=== PATIENT | female | born 1995 | race American Indian/Alaskan Native ===

== ENCOUNTER 2017-07-23 10:40 | Emergency (ER) | payer SELFPAY ==
[2017-07-23 12:28] VITALS: BP 109/75
== END 2017-07-23 17:10 | disposition left against medical advice (07) ==
LOC: ED 10:40
DX: R22.0 Localized swelling, mass and lump, head (principal); Z53.21 Procedure and treatment not carried out due to patient leaving prior to being seen by health care provider

== ENCOUNTER 2017-07-25 13:48 | Emergency (ER) | payer SELFPAY ==
[2017-07-25] MEDS ORDERED: TYLENOL PO ONE (14:02)
--- NOTE | 2017-07-25 16:53 | Emergency Department Report ---
HPI - General Chief Complaint: Sore Throat Time Seen by Provider: 07/25/17 16:52 - HPI HPI: Patient reports that she is having sore throat and right lower back tooth pain. She said this is been ongoing for a week now. Sore throat and tooth pain is 10 out of 10 and aching. No difficulty swallowing. Patient says she has a dental appointment in 2 days at a dentist in [place] but the pain is unbearable and she cannot take it so she came in. Denies any drooling, swelling of tongue or difficulty controlling secretions. Denies any coughing, nasal congestion. Denies any shortness of breath or chest pain. She denies any fever or chills. She says she took Motrin but it's not helping her pain. Patient is very anxious and crying, inconsolable. ED Past Medical Hx - Past Medical History Previous Medical History?: No - Surgical History Past Surgical History?: Yes - Family History Family history: hypertension - Social History Smoking Status: Unknown if ever smoked Substance Use Type: None - Medications Home Medications: Home Medications Medication Instructions Recorded Confirmed Last Taken Type HYDROcodone/APAP 7.5-325 [Linden 1 each PO Q6HR PRN 3 Days #12 07/25/17 Unknown Rx 7.5-325 mg TAB] tablet Ibuprofen [Motrin] 600 mg PO Q8H PRN 7 Days #21 tablet 07/25/17 Unknown Rx Penicillin V Potassium 500 mg PO Q8H 10 Days #30 tablet 07/25/17 Unknown Rx ED Review of Systems ROS: Stated complaint: SORE THROAT Other details as noted in HPI Comment: All other systems reviewed and negative Constitutional: no symptoms reported Eyes: denies: eye pain, eye discharge, vision change ENT: throat pain, dental pain. denies: ear pain, hearing loss, epistaxis, congestion Respiratory: no symptoms reported Cardiovascular: denies: chest pain, palpitations, dyspnea on exertion, orthopnea , edema, syncope, paroxysmal nocturnal dyspnea Gastrointestinal: denies: abdominal pain, nausea, vomiting, diarrhea, constipation, hematemesis, melena, hematochezia Musculoskeletal: denies: back pain, joint swelling, arthralgia, myalgia Skin: denies: rash Neurological: denies: headache, numbness, paresthesias, confusion, abnormal gait , vertigo Psychiatric: anxiety Physical Exam - Physical Exam Vital Signs: Vital Signs 07/25/17 07/25/17 13:58 14:11 Temperature 99.1 F Pulse Rate 102 H Respiratory 18 18 Rate Blood Pressure 129/88 O2 Sat by Pulse 100 Oximetry General: This is a 22-year-old female that is very anxious and crying inconsolable for severe toothache and sore throat. Physical Exam: Head: Normocephalic atraumatic Ears:BIateral TM pearly gonzalez .Compa EAC with normal exam. No mastoid bone tenderness. Mouth: Moist, no pharyngeal erythema or exudate . No tonsillar erythema or exudate. UVULA midline and oral airways patent. No peritonsillar abscess. Tooth #32 with fracture and positive pulp exposure. Positive dental caries. Mild gingival inflammation. No induration or cellulitic area noted. Tender to palpate around tooth #32. Tongue is normal Neck: Nontender to palpate, supple, normal range of motion. No adenopathy. No c- spine tenderness. Nose: Bilateral nasal mucosa normal. Maxillary and frontal sinuses non-tender to palpate. Eyes: Sclerae and conjunctiva without injection. Bilateral pupils equal and reactive to light. Bilateral lids are normal. Normal accommodation.BEOMI Lungs: Clear to auscultate bilaterally, no rhonchi wheezes or rales. Normal work of breathing and no chest wall tenderness CV: S1, S2. Mild tachycardia at 102 suspect from anxiety ,Regular rhythm negative murmur. Capillary refill is less than 3 seconds Skin: Clean dry and intact, no rashes or lesions Psych: Issue with anxiety and crying because she says she is in a lot of pain at her tooth. ED Course Vital Signs 07/25/17 07/25/17 13:58 14:11 Temperature 99.1 F Pulse Rate 102 H Respiratory 18 18 Rate Blood Pressure 129/88 O2 Sat by Pulse 100 Oximetry - Reevaluation(s) Reevaluation #1: 07/25/17 18:09 Patient given Percocet 5/325 2 tablets by mouth, penicillin VK 500 mg by mouth and Valium 10 mg by mouth in emergency room. ED Medical Decision Making - Medical Decision Making ED course: Pt here reports that she is having severe toothache to her right lower tooth and sore throat. She denied any fever or chills. She was has low- grade fever with mild tachycardia at 102. Patient is very anxious and crying. She reports that she is crying because she has severe toothache and she has an appointment with her dentist in 2 days but she could not wait because the pain is unbearable. Physical findings for fractured tooth #32 with dental caries, pulp exposure and mild gingivitis. Patient's throat without any exudate or erythema. No peritonsillar abscess. Lites midline and tongue is normal and oral airways patent. Patient given Percocet 5/325 2 tablets in emergency room, Valium 10 mg by mouth for anxiety and Penicillin VK 500 mg by mouth. I discussed the patient her diagnosis and treatment plan and she voiced understanding. Patient strep test is negative and cultures are pending. Patient discharged home with prescription for penicillin V, Linden, Motrin and to follow-up with her dentist as scheduled. She does not have a primary care physician so refer her to [facility] Critical care attestation.: If time is entered above; I have spent that time in minutes in the direct care of this critically ill patient, excluding procedure time. ED Disposition Clinical Impression: Tooth ache, Dental caries, Gingivitis, Anxiety about health Tooth fractures Qualifiers: Encounter type: initial encounter Fracture type: closed Qualified Code(s): S02.5XXA - Fracture of tooth (traumatic), initial encounter for closed fracture Acute pharyngitis Qualifiers: Pharyngitis/tonsillitis etiology: unspecified etiology Qualified Code(s): J02.9 - Acute pharyngitis, unspecified Disposition: DC-01 TO HOME OR SELFCARE Is pt being admited?: No Does the pt Need Aspirin: No Condition: Stable Instructions: Dental Caries (ED), Toothache (ED), Gingivitis (ED) Additional Instructions: do not drive or operate heavy machinery while taking Linden as this medication causes drowsiness Take antibiotic as prescribed Please keep your dental appointment in 2 days. The referral given to primary care doctor if you have any medical problems Prescriptions: HYDROcodone/APAP 7.5-325 [Linden 7.5-325 mg TAB] 1 each PO Q6HR PRN 3 Days #12 tablet PRN Reason: Pain Ibuprofen [Motrin] 600 mg PO Q8H PRN 7 Days #21 tablet PRN Reason: Pain Penicillin V Potassium 500 mg PO Q8H 10 Days #30 tablet Referrals: [facility] [Outside] - 07/30/17 your, Dentist [Other] - 07/27/17 Forms: Work/School Release Form(ED), Accompanied Note
[2017-07-25] MEDS ORDERED: VALIUM PO ONE (18:04)
[2017-07-25] MEDS ORDERED: PERCOCET 5/325 PO ONE (18:04)
[2017-07-25] MEDS ORDERED: XYLOCAINE 1% MPF 5 mL INFILTRATI ONE (18:29)
[2017-07-25] MEDS ORDERED: ROCEPHIN IM STA (18:29)
[2017-07-25 18:55] VITALS: BP 122/80
[2017-07-25] MEDS ORDERED: VEETIDS PO ONE (19:04)
== END 2017-07-25 18:53 | disposition home or self-care (01) ==
LOC: ED 13:48
DX: K05.10 Chronic gingivitis, plaque induced (principal); S02.5XXA Fracture of tooth (traumatic), initial encounter for closed fracture; J02.9 Acute pharyngitis, unspecified; X58.XXXA Exposure to other specified factors, initial encounter; Y93.89 Activity, other specified; Y92.89 Other specified places as the place of occurrence of the external cause; Y99.8 Other external cause status
CPT/HCPCS: 87116; 87430; 96372; 99282; J0696

== ENCOUNTER 2017-07-26 06:33 | Emergency (ER) | payer SELFPAY | END 2017-07-26 08:30 | disposition left against medical advice (07) | LOC: ED 06:33 | DX: K08.89 Other specified disorders of teeth and supporting structures (principal); Z53.21 Procedure and treatment not carried out due to patient leaving prior to being seen by health care provider ==

== ENCOUNTER 2018-01-12 12:39 | Emergency (ER) | payer SELFPAY ==
--- NOTE | 2018-01-12 15:19 | Emergency Department Report ---
ED Dizziness HPI - General Chief Complaint: Headache Stated Complaint: VERY HIGH HEAD Time Seen by Provider: 01/12/18 15:07 Source: patient Mode of arrival: Ambulatory Limitations: No Limitations - History of Present Illness Initial Comments: 22-year-old female past medical history obesity, smoker presents with complaint of episode where she briefly felt dizzy and slightly off balance while getting up out of bed earlier this morning. Patient states she has not been drinking enough water lately and feels slightly dehydrated. Patient is currently awake alert and oriented 3 not in acute distress. Episode occurred at approximately 7 AM this morning. Denies any symptoms at this time. States that dizziness spontaneously resolved after just a few minutes. Patient denies headache at this time. Denies any blurry vision. Denies chest pain palpitations shortness of breath. Denies any upper or lower extremity paresthesias. Denies hematuria possibly slightly increased urinary frequency x2 day. Patient is ambulatory fully lucid cooperative and accompanied by family member at bedside. LMP . Complaint: dizziness, lightheadedness Description: "room spinning", lightheadedness History of Same: No History of Trauma: No Severity: mild - Related Data Previous Rx's Medication Instructions Recorded Last Taken Type HYDROcodone/APAP 7.5-325 [Fithian 1 each PO Q6HR PRN 3 Days #12 07/25/17 Unknown Rx 7.5-325 mg TAB] tablet Ibuprofen [Motrin] 600 mg PO Q8H PRN 7 Days #21 tablet 07/25/17 Unknown Rx Penicillin V Potassium 500 mg PO Q8H 10 Days #30 tablet 07/25/17 Unknown Rx Meclizine [Antivert] 12.5 mg PO BID PRN #20 tablet 01/12/18 Unknown Rx Sulfamethoxazole/Trimethoprim 1 each PO BID #6 tablet 01/12/18 Unknown Rx [Bactrim DS TAB] Allergies Allergy/AdvReac Type Severity Reaction Status Date / Time No Known Allergies Allergy Unverified 07/23/17 12:23 ED Review of Systems ROS: Stated complaint: VERY HIGH HEAD Other details as noted in HPI Constitutional: denies: chills, fever Eyes: denies: eye pain, eye discharge, vision change ENT: denies: ear pain, throat pain Respiratory: denies: cough, shortness of breath, wheezing Cardiovascular: denies: chest pain, palpitations Endocrine: no symptoms reported Gastrointestinal: denies: abdominal pain, nausea, diarrhea Genitourinary: frequency. denies: urgency, dysuria, discharge Musculoskeletal: denies: back pain, joint swelling, arthralgia Skin: denies: rash, lesions Neurological: vertigo (brief episode earlier today). denies: headache, weakness , paresthesias Psychiatric: denies: anxiety, depression Hematological/Lymphatic: denies: easy bleeding, easy bruising ED Past Medical Hx - Social History Smoking Status: Current Every Day Smoker - Medications Home Medications: Home Medications Medication Instructions Recorded Confirmed Last Taken Type HYDROcodone/APAP 7.5-325 [Fithian 1 each PO Q6HR PRN 3 Days #12 07/25/17 Unknown Rx 7.5-325 mg TAB] tablet Ibuprofen [Motrin] 600 mg PO Q8H PRN 7 Days #21 tablet 07/25/17 Unknown Rx Penicillin V Potassium 500 mg PO Q8H 10 Days #30 tablet 07/25/17 Unknown Rx Meclizine [Antivert] 12.5 mg PO BID PRN #20 tablet 01/12/18 Unknown Rx Sulfamethoxazole/Trimethoprim 1 each PO BID #6 tablet 01/12/18 Unknown Rx [Bactrim DS TAB] ED Physical Exam - General Limitations: No Limitations General appearance: alert, in no apparent distress - Head Head exam: Present: atraumatic, normocephalic - Eye Eye exam: Present: normal appearance, PERRL, EOMI (patient has no nystagmus on exam) - ENT ENT exam: Present: mucous membranes moist - Neck Neck exam: Present: normal inspection - Respiratory Respiratory exam: Present: normal lung sounds bilaterally. Absent: respiratory distress - Cardiovascular Cardiovascular Exam: Present: regular rate, normal rhythm. Absent: systolic murmur, diastolic murmur, rubs, gallop - GI/Abdominal GI/Abdominal exam: Present: soft, normal bowel sounds - Extremities Exam Extremities exam: Present: normal inspection - Back Exam Back exam: Present: normal inspection - Neurological Exam Neurological exam: Present: alert, oriented X3, CN II-XII intact, normal gait - Expanded Neurological Exam Expanded Patient oriented to: Present: person, place, time Cranial nerves: EOM's Intact: Normal, Facial Sensation: Normal Motor strength exam: RUE: 5, LUE: 5, RLE: 5, LLE: 5 Best Eye Response (Casandra): (4) open spontaneously Best Motor Response (Casandra): (6) obeys commands Best Verbal Response (Casandra): (5) oriented Casandra Total: 15 - Psychiatric Psychiatric exam: Present: normal affect, normal mood - Skin Skin exam: Present: warm, dry, intact, normal color. Absent: rash ED Course Vital Signs 01/12/18 13:14 Temperature 99 F Pulse Rate 77 Respiratory 18 Rate Blood Pressure 117/62 O2 Sat by Pulse 100 Oximetry ED Medical Decision Making - Medical Decision Making A/P: Episode of vertigo, possible UTI 1-small leukocyte esterase, will treat empirically based on symptoms were short course of Bactrim 2-meclizine when necessary 3-follow up with primary care. Patient has no neurological deficits at this time. Has no symptoms at this time. I advised her if she experiences persistent headache with associated dizziness fever chills nausea and neck rigidity to return to the ED. Patient does not have any of the symptoms at this time. 4-advised patient to remain well-hydrated Critical care attestation.: If time is entered above; I have spent that time in minutes in the direct care of this critically ill patient, excluding procedure time. ED Disposition Clinical Impression: Dizziness Disposition: DC-01 TO HOME OR SELFCARE Is pt being admited?: No Does the pt Need Aspirin: No Condition: Stable Instructions: Dizziness (ED), Dehydration (ED), Urinary Tract Infection in Women (ED) Prescriptions: Meclizine [Antivert] 12.5 mg PO BID PRN #20 tablet PRN Reason: Vertigo Sulfamethoxazole/Trimethoprim [Bactrim DS TAB] 1 each PO BID #6 tablet Referrals: [facility] [Provider Group] - 3-5 Days [facility] [Outside] - 3-5 Days Forms: Accompanied Note, Work/School Release Form(ED) Time of Disposition: 16:15
[2018-01-12 15:58] LABS: Bilirubin,Urine NEG (Negative); Blood,Urine NEG (Negative); Color,Urine Yellow (Yellow); Protein,Urine <15 mg/dL mg/dL (Negative); Urobilinogen,Urine < 2.0 mg/dL (<2.0)
[2018-01-12 15:59] LABS: Mucus,Urine FEW /HPF
[2018-01-12 16:02] LABS: HCG Qualitative,Urine Negative (Negative)
[2018-01-12 16:26] VITALS: BP 120/74
== END 2018-01-12 16:25 | disposition home or self-care (01) ==
LOC: ED 12:39
DX: R42 Dizziness and giddiness (principal); F17.200 Nicotine dependence, unspecified, uncomplicated; R35.0 Frequency of micturition
CPT/HCPCS: 81001; 81025; 87086; 99282